=== PATIENT | male | born 2000 | race African-American/Black ===

== ENCOUNTER 2025-03-27 16:06 | Inpatient (IN) | payer MEDICAID, OTHER ==
[2025-03-27] VITALS (24 sets, daily range): BP systolic 88–109; BP diastolic 57–74; PULSE 65–94; RESP 10–25; TEMP 97.9–98.5; O2SAT 98–100
[~2025-03-27] VITALS: Ht 160 cm; Wt 43.6 kg
--- NOTE | 2025-03-27 16:17 | ED.PDOC ---
HPI Comments HPI: Elinor 24 year old male with a developmental delay and baseline orientation of A&Ox1 wa s brought to the ED via EMS for initial complaint of ALOC x today. According to his mother on scene, the patient was in the restroom for an extended period. She found him slumped against the wall on the toilet after hearing the bidet running excessively. The patient is unable to provide a full history but stated "hurt" when asked about chest pain. EMS reported a preliminary EKG finding concerning for a STEMI. His mother is en route to the hospital to assist in determining his baseline mental status Past Medical History: Developmentally delayed, Seizures, TP dependent, Blood clots (unknown per EMS but is on Eliquis) Past Surgical History: Unknown Social History: Denies ETOH, smoking, and drug use. Allergies: Flagyl ELINOR: CP. STEMI EKG faxed to us by EMS was sent to cardiology. Cardiology is at bedside at this time 4:15 p.m. Code STEMI was activated immediately. I specifically asked Dr. Mazariegos if he wants to do a CTA angiogram of the chest or CTA of the chest to rule out dissection and he said not to do this before the poultry hatchery laborer angiogram. He said to wait for now. HPI: Poor Historian. No family members available at bedside. History obtained from EMS only. REVIEW OF SYSTEMS: CONSTITUTIONAL: Denies acute: fever, diaphoresis, chills, generalized weakness. HEAD: Denies acute: headache, photophobia Eyes: Denies acute: Double vision, vision loss, eye pain, eye discharge. EARS: Denies acute: tinnitus, hearing loss, ear discharge, ear pain, THROAT: Denies acute: sore throat, swelling, difficulty swallowing , pain with swallowing, change in voice. NECK: Denies acute: neck pain, neck swelling, stiff neck. HEART: Denies acute : palpitations, LUNGS: Denies acute: SOB, wheezing, cough, hemoptysis ABDOMEN: Denies acute: abdominal pain, Nausea, Vomiting, diarrhea, melena , hematemesis, hematochezia SKIN: Denies acute: rash, redness, lesions, itchiness. EXTREMITIES: Denies acute: calf pain, numbness, tingling, weakness, denies pain in extremity. Denies acute: Low back pain. Neuro: Denies acute: focal neurological deficit, motor or sensory focal neurological deficit, tremors, seizure like activity, confusion, dizziness, change in mental status, loss of bowel or bladder function, cauda equina like symptoms. : Denies acute: dysuria, hematuria, flank pain, increase in urinary frequency. PSYCH: Denies acute: hallucination, suicidal ideation, homicidal ideation. PHYSICAL EXAM: General: ---moderate to severe-----acute distress, awake and alert. Head: normocephalic, atraumatic. Neck: supple, trachea is midline, no swelling. Eyes:, no erythema, no purulent discharge, no proptosis, no icterus. Heart: regular rate, regular rhythm, no significant murmur appreciated. Lungs: no apparent respiratory distress, No wheezing, no rhonchi, no crackles. No stridors Clear to auscultation bilaterally. Abdomen: non tender to palpation, non distended, soft, no guarding, no rebound, + bowel sounds. Neuro: Awake, Alert, oriented to name, self, situation, follows commands GCS=15. Speech is normal. Skin: no petechia, no purpura, no cyanosis, non-pale, not jaundice. Lower extremities: --no - Pitting edema no deformity, no focal swelling, no calf TTP. Makes eye contact. Noted right eye white out Able to raise left upper extremity but not right upper extremity. Face: no apparent facial droop. ED COURSE: DISCLAIMER: This medical document was created using an electronic medical record system with voice recognition software and computerized dictation system. Although this document has been carefully reviewed, there might still be some phonetic and typographical errors. Occasional wrong-word or "sound-alike" substitutions may have occurred due to the inherent limitations of voice recognition software. These areas are purely typographical due to imperfections of the software programs and do not reflect any compromise in the patient's medical care. Please read the chart carefully and recognize, using context, where these substitutions have occurred. Time Seen by MD: 16:09 Reviewed Notes: Allergies Allergies: Coded Allergies: Metronidazole (Verified Allergy, Unknown, 03/27/25) Uncoded Allergies: contrast (Allergy, Mild, 03/27/25) Hives Home Meds Active Scripts Lisinopril (Lisinopril) 20 Mg Tab, 1 TAB PO DAILY, #30 TAB 5 Refills Prov:PAULA BAUGH DO 03/29/25 Atorvastatin Calcium (ATORVASTATIN CALCIUM) 20 Mg Tab, 1 TAB PO DAILY for 30 Days, #30 TAB 5 Refills Prov:PAULA BAUGH DO 03/29/25 Levetiracetam (KEPPRA TABLET) 500 Mg Tb, 500 MG PO BID for 30 Days, #60 TAB 3 Refills Prov:PAULA BAUGH DO 03/29/25 Docusate Sodium (Docusate Sodium) 100 Mg Cap, 100 MG PO BIDPRN PRN for 10 Days, #20 CAP 3 Refills Prov:PAULA BAUGH DO 03/29/25 Apixaban Base (ELIQUIS) 5 Mg Tab, 5 MG PO BID for 30 Days, #60 TAB 3 Refills Prov:PAULA BAUGH DO 03/29/25 Information Source: Emergency Med Personnel Mode of Arrival: EMS Was a procedure done? Was a procedure done?: No CP Differential Dx Differential Diagnosis: N/A Differential Diagnosis: Angina, Chest Wall Pain, Cholelithiasis, Costochondritis, Other (Ddx include but not limitied to gastritis, musculoskeletal pain, radiculopathy, atypical chest pain, dissection, aneurysm, ACS, unstable angina, hiatal hernia, GERD, anxiety, costochondritis, PE, pneumothroax, neoplasm, cardiac ischemia, drug abuse, anemia.) X-Ray, Labs, Meds, VS Vital Signs Date Time Temp Pulse Resp B/P (MAP) Pulse Ox O2 Delivery O2 Flow Rate FiO2 03/27/25 18:23 98.5 70 12 106/65 (79) 100 98.5 03/27/25 16:26 97.7 114 18 142/85 97 97.7 03/27/25 16:26 97.7 114 18 142/85 (104) 97 97.7 03/27/25 16:19 98 03/27/25 16:19 98 Lab Test 03/27/25 16:58 03/27/25 16:36 Range/Units Erythrocyte Sedimentation Rate 6 0-20 mm/hr Prothrombin Time 11.5 9.3-11.8 sec Prothrombin Time INR 1.09 0.9-1.15 Activated Partial Thromboplast Time < 20.0 L 24.5-34.5 SEC Magnesium Level 2.0 1.6-2.6 mg/dL Troponin I High Sensitivity 200 *H </=54 ng/L C-Reactive Protein High Sensitivity 0.08 <1.0 mg/dL Triglycerides Level 95 < 150 mg/dL Cholesterol Level 82 < 200 mg/dL LDL Cholesterol 43 < 100 mg/dL HDL Cholesterol 28 L 40-59 mg/dL Thyroid Stimulating Hormone (TSH) 2.05 0.55-4.78 uIU/mL White Blood Count 7.4 4.4-10.8 10^3/uL Red Blood Count 5.18 4.5-5.90 10^6/uL Hemoglobin 12.4 L 13.5-17.5 g/dL Hematocrit 40.4 L 41.0-53.0 % Mean Corpuscular Volume 77.9 L 80.0-100.0 fL Mean Corpuscular Hemoglobin 23.9 L 28.0-32.0 pg Mean Corpuscular Hemoglobin Concent 30.7 L 32.0-36.0 g/dL Red Cell Distribution Width 16.1 H 11.8-14.3 % Platelet Count 180 140-450 10^3/uL Mean Platelet Volume 9.4 6.9-10.8 fL Neutrophils (%) (Auto) 71.1 37.0-80.0 % Lymphocytes (%) (Auto) 22.4 10.0-50.0 % Monocytes (%) (Auto) 4.1 0.0-12.0 % Eosinophils (%) (Auto) 2.0 0.0-7.0 % Basophils (%) (Auto) 0.4 0.0-2.0 % Neutrophils # (Auto) 5.3 1.6-8.6 10 ^3/uL Lymphocytes # (Auto) 1.7 0.4-5.4 10 ^3/uL Monocytes # (Auto) 0.3 0-1.3 10 ^3/uL Eosinophils # (Auto) 0.2 0-0.8 10 ^3/uL Basophils # (Auto) 0 0-0.2 10 ^3/uL Nucleated Red Blood Cells 0.1 % Sodium Level 146 H 136-145 mmol/L Potassium Level 4.5 3.5-5.1 mmol/L Chloride Level 115 H 98-107 mmol/L Carbon Dioxide Level 16 L 20-31 mmol/L Anion Gap 15 5-15 Blood Urea Nitrogen 10 9-23 mg/dL Creatinine 0.89 0.700-1.30 mg/dL Glomerular Filtration Rate Calc 122 >90 mL/min BUN/Creatinine Ratio 11.2 10.0-20.0 Serum Glucose 113 H 74-106 mg/dL Hemoglobin A1c < 3.8 <5.7 % A1C Calcium Level 9.0 8.7-10.4 mg/dL Total Bilirubin 1.9 H 0.2-1.0 mg/dL Aspartate Amino Transferase (AST) 28 13-40 U/L Alanine Aminotransferase (ALT) 35 7-40 U/L Alkaline Phosphatase 146 H 46-116 U/L B-Type Natriuretic Peptide 21.81 0-100 pg/mL Total Protein 7.7 5.7-8.2 g/dL Albumin 4.4 3.2-4.8 g/dL Microbiology Date/Time Source Procedure Growth Status 03/27/25 07:27 Nose MRSA Screen - Final Complete Time of 1ST Reevaluation: 16:28 Reevaluation 1ST: Unchanged Patient Education/Counseling: Other (baseline of A&O x1- developmentally delayed ) Family Education/Counseling: No Family Present Comments MDM: patient presented with the above HPI.--cardiac----workup was initiated. patient was found with the above mentioned diagnosis. the following medications were ordered: please refer to order lists of meds and tests obtained by myself Dr. Quiroz. Patient ED course and VS have been stabilized. Patient has been reassessed in the ED and remained in a stable condition. Pertinent incidental findings were discussed with the patient and/or family. Patient/family voices understanding and is agreeable with plan. Patient has been observed in the ED adequate length of time to insure improvement/stability. Escalation of care considered: Consideration of escalation to observation or admission Cardiology was consulted immediately. Code STEMI was activated immediately. Patient was taken to the poultry hatchery laborer. All the reports of any imaging studies that were ordered by myself were reviewed by myself. Departure 1 Departure Time of Disposition: 16:29 Impression: Primary Impression: STEMI (ST elevation myocardial infarction) Additional Impression: Chest pain Disposition: ADMITTED INPATIENT Admit to: Tele Condition: Critical e-Prescriptions Lisinopril (Lisinopril) 20 Mg Tab 1 TAB PO DAILY, #30 TAB 5 Refills Prov: PAULA BAUGH DO 03/29/25 Atorvastatin Calcium (ATORVASTATIN CALCIUM) 20 Mg Tab 1 TAB PO DAILY for 30 Days, #30 TAB 5 Refills Prov: PAULA BAUGH DO 03/29/25 Levetiracetam (KEPPRA TABLET) 500 Mg Tb 500 MG PO BID for 30 Days, #60 TAB 3 Refills Prov: PAULA BAUGH DO 03/29/25 Docusate Sodium (Docusate Sodium) 100 Mg Cap 100 MG PO BIDPRN PRN for 10 Days, #20 CAP 3 Refills Prov: PAULA BAUGH DO 03/29/25 Apixaban Base (ELIQUIS) 5 Mg Tab 5 MG PO BID for 30 Days, #60 TAB 3 Refills Prov: PAULA BAUGH DO 03/29/25 Discharged With: Self Critical Care Note Critical Care Time?: Yes Heart Score Heart Score: Heart Score Response (Comments) Value History Moderate Suspicious [address]-Deviation 2 Age <45 0 Risk Factors 1 or 2 risk factors 1 Troponin >3 x's Normal limit 2 Total 6 I personally scribed for GORDON QUIROZ DO ([email or web address]) on 03/27/25 at 16:17. Electronically submitted by Joyce Vargas ([facility]). I personally scribed for GORDON QUIROZ DO ([email or web address]) on 03/27/25 at 16:36. Electronically submitted by Joyce Vargas ([facility]). GORDON QUIROZ DO Mar 27, 2025 16:17
--- NOTE | 2025-03-27 16:30 | ECG ---
[facility] Test Date: 2025-03-27 Test Time: 16:18:06 Pat Name: EVANGELINA ANTOINE Department: Room: 0231T Gender: M Crt: HUBERT : 2000 Requested By: GORDON QUIROZ Order Number: [id number] Reading MD: Atul Dorman Measurements Intervals [place] Rate: 110 P: 52 KS: 119 QRS: 53 QRSD: 84 T: -9 QT: 310 QTc: 420 Interpretive Statements Sinus tachycardia Paired ventricular premature complexes Aberrant conduction of SV complex(es) Borderline T abnormalities, inferior leads Baseline wander in lead(s) I,II,aVR,V1 Electronically Signed On 04-03-2025 20:16:40 PDT by Atul Dorman Please click the below link to view image of tracing.
[2025-03-27] MEDS: diphenhdrAMINE HCL 50 MG/1 ML VL IV ONE (16:39)
[2025-03-27] MEDS: FAMOTIDINE (10MG/ML) 2ML VL IV ONE ×2 (16:40→17:03)
--- NOTE | 2025-03-27 16:40 | DVHINCON2 ---
Date Seen: Mar 27, 2025 Referring Physician MD Priyank Reason for Consultation STEMI History of Present Illness This is a 24-year-old man who presented to the emergency room via EMS with a chief complaint of worsening ALOC. Information obtained from EMS and mother, apparently the patient was using the bathroom for an extended period of time when mother realized the bidet was running non-stop prompting her to inquire further and finding the patient leaning against the wall with clenched fists and yelling distressed which prompted to call 911. Upon EMS arrival he underwent multiple 12 lead electrocardiograms revealing significant ECG changes concerning for a STEMI. Upon arrival to the emergency room the patient underwent a subsequent 12 lead electrocardiogram revealing lateral wall ST-elevation with reciprocal changes to inferior and anteroseptal leads. This ECG was evaluated by Dr. Mazariegos at bedside who activated a Code STEMI. Mother at bedside denies any past medical of congenital heart disease, coronary artery disease, or pericarditis. Pending at this time. 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 Of note, patient follows up with GI/neurologist specialists at [facility]. Past Medical History Past medical history reviewed. No other significant than mentioned above. Past Surgical History Intestinal surgery at 4 y.o. Unspecified tendons Eyes Family History Family history reviewed. Social History Lives at home with family. Allergies: Coded Allergies: Metronidazole (Verified Allergy, Unknown, 03/27/25) Uncoded Allergies: contrast (Allergy, Mild, 03/27/25) Hives Home Meds Home medications reviewed. Review of Systems Constitutional: No symptom reported Ears, Nose, & Throat: No symptom reported Eyes: No symptom reported Neurological: No symptoms reported Pulmonary/Respiratory: No symptom reported Cardiovascular: No symptom reported Gastrointestinal: No symptom reported Genitourinary: No symptom reported Musculoskeletal: No symptom reported Skin: No symptom reported Psychiatric: No symptom reported Endocrine: No symptom reported Hemotologic/Lymphatic: No symptom reported Vital Signs Vital Signs Date Time Temp Pulse Resp B/P (MAP) Pulse Ox O2 Delivery O2 Flow Rate FiO2 03/27/25 16:26 97.7 114 18 142/85 97 97.7 Physical Exam General Appearance: +Cognitive delay. Non-verbal, yelling in distress. Spastic. Appears younger Head Exam: abnormal Neck Exam: Normal inspection. Pulmonary/Respiratory: Diminished bilateral breath sounds Cardiovascular/Chest: Regular rate and rhythm. S1, S2. Lateral wall ST elevation with reciprocal changes to inferior and anteroseptal changes. Peripheral Pulses: 2+ Radial (R). 2+ Radial (L). 2+ Pedal (R). 2+ Pedal (L) Abdominal Exam: Normal bowel sounds Ankle Exam: Negative ankle edema Lower extremities: Negative lower extremity edema Neuro/Mental Status: Cognitive delay Thoughts/Psych: Unable to assess Appearance: Nonverbal, yelling in distress Skin Exam: Normal inspection. Normal color. Warm. Dry Assessment Acute lateral wall ST elevation myocardial infarction Possible acute pericarditis Rule out structural heart disease Cerebral palsy with cognitive delay Hx of multiple upper extremity DVTs (on Eliquis therapy) Seizure activity Plan/Recommendation (Dr. Mazariegos) Patient assessed and evaluated by Dr. Mazariegos who spoke to mother at bedside. Code STEMI activated for which the patient will be emergently scheduled for a coronary angiogram with cardiac catheterization. All risks and benefits of the procedure were discussed in full detail including risk of acute respiratory failure, bleeding, acute kidney injury, acute CVA, coronary dissection, and even . Mother agrees to proceed with intervention. All questions answered. Given a mild allergy for contrast including hives, the patient is scheduled for anaphylaxis prophylaxis prior to procedure. Given Eliquis therapy administration on 03/26/2025, we will hold off from anticoagulation or antiplatelet therapy at this time. In the meantime, obtain a transthoracic echocardiogram to evaluate cardiac function. Blood work pending at this time. Further orders and recommendations per clinical course. Thank you for allowing us to participate in this patient's care. Please call if you have any questions or concerns. Critical care time: 45 minutes. This medical document was created using an electronic medical record system with voice recognition software and computerized dictation system. Although this document has been carefully reviewed, there might still be some phonetic and typographical errors. Occasional wrong-word or ``sound-alike substitutions may have occurred due to the inherent limitations of voice recognition software. These areas are purely typographical due to imperfections of the software programs and do not reflect any compromise in the patient's medical care. Please read the chart carefully and recognize, using context, where these substitutions have occurred. Plan discussed with: Other (mother, aunt) NYHA Physical activity limitations: NA Date of Service: Mar 27, 2025 Billing Provider: SILVIO LAMBERT Cardiology Common Codes: 90294-HUWAGGHI CARE 30-74 MIN SILVIO LAMBERT Mar 27, 2025 16:40
[2025-03-27] MEDS: DEXMEDETOMIDINE HCL IN D5W 100 ML IV ONE (16:50)
[2025-03-27] MEDS: DEXMEDETOMIDINE HCL IN D5W 100 ML IV SCH (16:53)
[2025-03-27] MEDS: methylPREDNISolone SOD SUCC 40 MG/ML VL IV ONE (16:54)
[2025-03-27] MEDS: MIDAZOLAM HCL 2MG/2ML 2ml VIAL (1mg/ml) ONE (16:59)
[2025-03-27] MEDS: fentaNYL CITRATE 100 MCG/2 ML VL ONE (16:59)
[2025-03-27] MEDS: HEPARIN SODIUM (PORCINE) 5000 UNITS/ML 1ML VIAL ONE (16:59)
[2025-03-27] MEDS: ANGIOMAX 250 MG VIAL IV ONE (16:59)
[2025-03-27] MEDS: IODIXANOL 320MG/ML 100ML BTL IV ONE (17:00)
[2025-03-27] MEDS: LIDOCAINE 2%HCL (LOCAL ANESTH.) INJ 20ML MDV ONE (17:00)
[2025-03-27] MEDS: SODIUM CHL 0.9% 50 ML ONE (17:00)
[2025-03-27] MEDS: methylPREDNISolone SOD SUCC 125 MG/2 ML VL ONE (17:03)
[2025-03-27] MEDS: diphenhdrAMINE HCL 50 MG/1 ML VL ONE (17:03)
[2025-03-27 17:06] LABS: Alanine Aminotransferase 35 U/L (7-40); Albumin 4.4 g/dL (3.2-4.8); Anion Gap 15 (5-15); BUN/Creatinine Ratio 11.2 (10.0-20.0); Blood Urea Nitrogen 10 mg/dL (9-23); Calcium 9.0 mg/dL (8.7-10.4); Potassium 4.5 mmol/L (3.5-5.1); Total Protein 7.7 g/dL (5.7-8.2)
--- NOTE | 2025-03-27 17:08 | DVH ---
CHEST RADIOGRAPH Indication: cp Technique: Single frontal view of the chest was obtained Comparison: None FINDINGS: Lines and Tubes: None Lungs: Questionable airspace disease left mid lung field lobe pleural-based. Pleura: No effusion. No pneumothorax. Cardiomediastinal contours: Unremarkable Bones: No acute osseous abnormality. IMPRESSION: 1. Possible pleural-based airspace disease left mid lung field lobe.
[2025-03-27 17:11] LABS: Hematocrit 40.4 % (41.0-53.0); Hemoglobin 12.4 g/dL (13.5-17.5); Mean Corpuscular Hemoglobin 23.9 pg (28.0-32.0); Mean Corpuscular Volume 77.9 fL (80.0-100.0); Nucleated Red Blood Cells % 0.1 %
[2025-03-27 17:13] LABS: Alkaline Phosphatase 146 U/L (46-116); Bilirubin, Total 1.9 mg/dL (0.2-1.0); Carbon Dioxide 16 mmol/L (20-31); Chloride 115 mmol/L (98-107); Glucose 113 mg/dL (74-106); Sodium 146 mmol/L (136-145)
[2025-03-27 17:21] LABS: Magnesium 2.0 mg/dL (1.6-2.6); Triglycerides 95.0 mg/dL (< 150)
[2025-03-27 17:23] LABS: Cholesterol 82.0 mg/dL (< 200)
[2025-03-27 17:30] LABS: INR 1.09 (0.9-1.15); Partial Thromboplastin Time < 20.0 SEC (24.5-34.5); Prothrombin Time 11.5 sec (9.3-11.8)
[2025-03-27 17:39] LABS: HDL Cholesterol 28.0 mg/dL (40-59)
--- NOTE | 2025-03-27 18:28 | DVHINCON2 ---
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 Information obtained from EMS and mother, apparently the patient was using the bathroom for an extended period of time when mother realized the bidet was running non-stop prompting her to inquire further and finding the patient leaning against the wall with clenched fists and yelling distressed which prompted to call 911. Upon EMS arrival he und erwent multiple 12 lead electrocardiograms revealing significant ECG changes concerning for a STEMI. Upon arrival to the emergency room the patient underwent a subsequent 12 lead electrocardiogram revealing lateral wall ST-elevation with reciprocal changes to inferior and anteroseptal leads. This ECG was evaluated by me at bedside therefore I activated a Code STEMI. Mother at bedside denies any past medical of congenital heart disease, coronary artery disease, or pericarditis. Pending at this time. Of note, patient follows up with GI/neurologist specialists at [facility]. Patient will be emergently taken to the label maker and admitted to ICU. Past Medical History Past medical history reviewed. No other significant than mentioned above. Past Surgical History Intestinal surgery at 4 y.o. Unspecified tendons Eyes Allergies: Coded Allergies: Metronidazole (Verified Allergy, Unknown, 03/27/25) Uncoded Allergies: contrast (Allergy, Mild, 03/27/25) Hives Review of Systems Constitutional: No symptom reported Ears, Nose, & Throat: No symptom reported Eyes: No symptom reported Neurological: No symptoms reported Pulmonary/Respiratory: No symptom reported Cardiovascular: No symptom reported Gastrointestinal: No symptom reported Genitourinary: No symptom reported Musculoskeletal: No symptom reported Skin: No symptom reported Psychiatric: No symptom reported Endocrine: No symptom reported Hemotologic/Lymphatic: No symptom reported Vital Signs Vital Signs Date Time Temp Pulse Resp B/P (MAP) Pulse Ox O2 Delivery O2 Flow Rate FiO2 03/27/25 16:26 97.7 114 18 142/85 97 97.7 Physical Exam GENERAL: Alert and oriented x 3. +Cognitive delay. Non-verbal, yelling in distress. Spastic. Appears younger. EYES: PERRL, EOMI. Anicteric. HENT: Moist mucous membranes. LUNGS: Decreased breath sounds. CARDIOVASCULAR: Regular rate and rhythm. ABDOMEN: Soft, nontender and nondistended. EXTREMITIES: No edema. NEUROLOGIC: Cognitive delay. SKIN: Warm, dry. Labs/Diagnostic Data Labs Test 03/27/25 16:58 03/27/25 16:36 Range/Units White Blood Count 7.4 4.4-10.8 10^3/uL Red Blood Count 5.18 4.5-5.90 10^6/uL Hemoglobin 12.4 L 13.5-17.5 g/dL Hematocrit 40.4 L 41.0-53.0 % Mean Corpuscular Volume 77.9 L 80.0-100.0 fL Mean Corpuscular Hemoglobin 23.9 L 28.0-32.0 pg Mean Corpuscular Hemoglobin Concent 30.7 L 32.0-36.0 g/dL Red Cell Distribution Width 16.1 H 11.8-14.3 % Platelet Count 180 140-450 10^3/uL Mean Platelet Volume 9.4 6.9-10.8 fL Neutrophils (%) (Auto) 71.1 37.0-80.0 % Lymphocytes (%) (Auto) 22.4 10.0-50.0 % Monocytes (%) (Auto) 4.1 0.0-12.0 % Eosinophils (%) (Auto) 2.0 0.0-7.0 % Basophils (%) (Auto) 0.4 0.0-2.0 % Neutrophils # (Auto) 5.3 1.6-8.6 10 ^3/uL Lymphocytes # (Auto) 1.7 0.4-5.4 10 ^3/uL Monocytes # (Auto) 0.3 0-1.3 10 ^3/uL Eosinophils # (Auto) 0.2 0-0.8 10 ^3/uL Basophils # (Auto) 0 0-0.2 10 ^3/uL Nucleated Red Blood Cells 0.1 % Sodium Level 146 H 136-145 mmol/L Potassium Level 4.5 3.5-5.1 mmol/L Chloride Level 115 H 98-107 mmol/L Carbon Dioxide Level 16 L 20-31 mmol/L Anion Gap 15 5-15 Blood Urea Nitrogen 10 9-23 mg/dL Creatinine 0.89 0.700-1.30 mg/dL Glomerular Filtration Rate Calc 122 >90 mL/min BUN/Creatinine Ratio 11.2 10.0-20.0 Serum Glucose 113 H 74-106 mg/dL Calcium Level 9.0 8.7-10.4 mg/dL Total Bilirubin 1.9 H 0.2-1.0 mg/dL Aspartate Amino Transferase (AST) 28 13-40 U/L Alanine Aminotransferase (ALT) 35 7-40 U/L Alkaline Phosphatase 146 H 46-116 U/L Total Protein 7.7 5.7-8.2 g/dL Albumin 4.4 3.2-4.8 g/dL Assessment Acute lateral wall ST elevation myocardial infarction. Possible acute pericarditis. Rule out structural heart disease. Cerebral palsy with cognitive delay. 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 Seizure activity. Plan/Recommendation I agree with your ongoing assessment and care of plan. Patient has been seen by Nu Graham NP on my behalf, her and I discussed the plan with the patient. Patient was assessed an evaluated by me at bedside, I spoke with the patient's mother. Code STEMI activated for which the patient will be emergently scheduled for a coronary angiogram with cardiac catheterization. All risks and benefits of the procedure were discussed in full detail including risk of acute respiratory failure, bleeding, acute kidney injury, acute CVA, coronary dissection, and even . Mother agrees to proceed with intervention. All questions answered. Given a mild allergy for contrast including hives, the patient is scheduled for anaphylaxis prophylaxis prior to procedure. Given Eliquis therapy administration on 03/26/2025, we will hold off from anticoagulation or antiplatelet therapy at this time. In the meantime, obtain a transthoracic echocardiogram to evaluate cardiac function. Blood work pending at this time. Further orders and recommendations per clinical course. Additional plan as per the hospital course. Plan discussed with: Patient NYHA Physical activity limitations: NA Date of Service: Mar 27, 2025 Billing Provider: JOHNNY DEL ROSARIO MD Cardiology Common Codes: [id number] INP/OBS CARE (High), [id number] CARE 30-74 MIN JOHNNY DEL ROSARIO MD Mar 27, 2025 17:33
[2025-03-27] MEDS ORDERED: DOCUSATE SOD 100 MG CAP PO PRN (18:30)
[2025-03-27] MEDS ORDERED: ACETAMINOPHEN 325 MG TAB PO PRN (18:30)
[2025-03-27] MEDS ORDERED: ONDANSETRON HCL 4 MG/2 ML VIAL IV PRN (18:30)
--- NOTE | 2025-03-27 18:36 | DVHHP2 ---
History of Present Illness Reason for Visit: ST elevated myocardial infarction History of Present Illness The patient is a 24-year-old male mentally delayed with past medical history of seizure, upper extremity blood clots currently on Eliquis who presented to [facility] ED for evaluation of altered level of consciousness. As reported by EMS and her mother, the patient was using the bathroom for an extended period of time when mother realized the bidet was running non-stop prompting her to inquire further and finding the patient leaning against the wall with clenched fists and yelling distressed which prompted to call 911. Patient was seen and evaluated in the ED, he underwent a subsequent 12 lead electrocardiogram revealing lateral wall ST-elevation with reciprocal changes to inferior and anteroseptal leads. This ECG was evaluated by Dr. Mazariegos at bedside who activated a Code STEMI. Mother at bedside denies any past medical of congenital heart disease, coronary artery disease, or pericarditis. As reported by mom, patient follows up with GI/neurologist specialists at [facility]. Laboratory data shows WBC 7.4, hemoglobin 12.4, hematocrit 40.4, platelets 180, sodium 146, potassium 4.5, BUN 10, creatinine 0.99, glucose 113, calcium 9.0, total bilirubin 1.9, BNP 21.81, troponin to 200, TSH 2.05, blood pressure 142/85, heart rate 114, temperature 97.7 F, O2 saturation 97% on oxygen. Please see medication orders section in the computer. On my assessment, patient remains altered, no diaphoresis, currently on oxygen, no diaphoresis, no diarrhea, no n ausea or vomiting, no fever, no chills. Patient was admitted for further evaluation and medical management. Past Medical History Developmentally delayed, Seizures, TP dependent, Upper extremity blood clots (unknown per EMS but is on Eliquis) Past Surgical History Intestinal surgery at 4 y.o. Unspecified tendons Eyes Family History Family history reviewed. Past Social History Lives at home with family. Review of Systems Constitutional: Yes: Weakness; No: Fever, Chills, Sweats, Malaise, Other Eyes: No: Pain, Vision change, Conjunctivae inflammation, Eyelid inflammation, Other, Redness ENT: No: Ear pain, Ear discharge, Nose pain, Nose discharge, Nose congestion, Mouth pain, Mouth swelling, Throat pain, Throat swelling, Other Respiratory: Shortness of breath; No: Cough, Dry, SOB with excertion, Wheezing, Hemoptysis, Pleuritic Pain, Sputum, Wheezing, Other Cardiovascular: Chest Pain; No: Palpitations, Orthopnea, Paroxysmal Noc. Dyspnea, Edema, Lt Headedness, Other Gastrointestinal: No: Nausea, Vomiting, Abdominal Pain, Diarrhea, Constipation, Melena, Hematochezia, Other Genitourinary: No Dysuria, No Frequency, No Incontinence, No Hematuria, No Retention, No Other Musculoskeletal: No: other, neck pain, shoulder pain, arm pain, back pain, hand pain, leg pain, foot pain Skin: No: Rash, Lesions, Jaundice, Bruising, Other Neurological: Confusion, Other (Altered level of consciousness); No: Weakness, Numbness, Incoordination, Change in speech, Seizures Allergies: Coded Allergies: Metronidazole (Verified Allergy, Unknown, 03/27/25) Uncoded Allergies: contrast (Allergy, Mild, 03/27/25) Hives Exam Vital Signs Vital Signs Date Time Temp Pulse Resp B/P (MAP) Pulse Ox O2 Delivery O2 Flow Rate FiO2 03/27/25 18:23 98.5 70 12 106/65 (79) 100 98.5 General Appearance: Alert, Cooperative, No acute distress, Other (Oriented x1) HEENT: Atraumatic, PERRLA, EOMI, Mucous membr. moist/pink Respiratory: Normal air movement, Other (Currently on oxygen) Cardiovascular: Regular rate, Normal S1, Normal S2, No murmurs Abdominal: Normal bowel sounds, Soft, No tenderness, No hepatospenomegaly, No masses Extremities: No clubbing, No cyanosis, No edema, Normal pulses, No te nderness/swelling Skin: No significant lesion Neuro: Normal tone, Sensation intact, Reflexes 2+, Other (Generalized weakness) Psych/Mental Status: Mood NL, Other (Altered mental status) Labs/Xrays Labs Test 03/27/25 16:58 03/27/25 16:36 Range/Units Erythrocyte Sedimentation Rate 6 0-20 mm/hr Prothrombin Time 11.5 9.3-11.8 sec Prothrombin Time INR 1.09 0.9-1.15 Activated Partial Thromboplast Time < 20.0 L 24.5-34.5 SEC Magnesium Level 2.0 1.6-2.6 mg/dL Troponin I High Sensitivity 200 *H </=54 ng/L C-Reactive Protein High Sensitivity 0.08 <1.0 mg/dL Triglycerides Level 95 < 150 mg/dL Cholesterol Level 82 < 200 mg/dL LDL Cholesterol 43 < 100 mg/dL HDL Cholesterol 28 L 40-59 mg/dL Thyroid Stimulating Hormone (TSH) 2.05 0.55-4.78 uIU/mL White Blood Count 7.4 4.4-10.8 10^3/uL Red Blood Count 5.18 4.5-5.90 10^6/uL Hemoglobin 12.4 L 13.5-17.5 g/dL Hematocrit 40.4 L 41.0-53.0 % Mean Corpuscular Volume 77.9 L 80.0-100.0 fL Mean Corpuscular Hemoglobin 23.9 L 28.0-32.0 pg Mean Corpuscular Hemoglobin Concent 30.7 L 32.0-36.0 g/dL Red Cell Distribution Width 16.1 H 11.8-14.3 % Platelet Count 180 140-450 10^3/uL Mean Platelet Volume 9.4 6.9-10.8 fL Neutrophils (%) (Auto) 71.1 37.0-80.0 % Lymphocytes (%) (Auto) 22.4 10.0-50.0 % Monocytes (%) (Auto) 4.1 0.0-12.0 % Eosinophils (%) (Auto) 2.0 0.0-7.0 % Basophils (%) (Auto) 0.4 0.0-2.0 % Neutrophils # (Auto) 5.3 1.6-8.6 10 ^3/uL Lymphocytes # (Auto) 1.7 0.4-5.4 10 ^3/uL Monocytes # (Auto) 0.3 0-1.3 10 ^3/uL Eosinophils # (Auto) 0.2 0-0.8 10 ^3/uL Basophils # (Auto) 0 0-0.2 10 ^3/uL Nucleated Red Blood Cells 0.1 % Sodium Level 146 H 136-145 mmol/L Potassium Level 4.5 3.5-5.1 mmol/L Chloride Level 115 H 98-107 mmol/L Carbon Dioxide Level 16 L 20-31 mmol/L Anion Gap 15 5-15 Blood Urea Nitrogen 10 9-23 mg/dL Creatinine 0.89 0.700-1.30 mg/dL Glomerular Filtration Rate Calc 122 >90 mL/min BUN/Creatinine Ratio 11.2 10.0-20.0 Serum Glucose 113 H 74-106 mg/dL Hemoglobin A1c < 3.8 <5.7 % A1C Calcium Level 9.0 8.7-10.4 mg/dL Total Bilirubin 1.9 H 0.2-1.0 mg/dL Aspartate Amino Transferase (AST) 28 13-40 U/L Alanine Aminotransferase (ALT) 35 7-40 U/L Alkaline Phosphatase 146 H 46-116 U/L B-Type Natriuretic Peptide 21.81 0-100 pg/mL Total Protein 7.7 5.7-8.2 g/dL Albumin 4.4 3.2-4.8 g/dL PATIENT: EVANGELINA ANTOINE ACCT: [id number] UNIT: [id number] : 2000 LOC: ER ROOM / BED: / AGE / SEX: 24 / M ADM STATUS: REG ER SERVICE ORDERING PHYSICIAN: GORDON QUIROZ DO PROCEDURE(s): CXRP - CHEST PORTABLE REASON: cp ORDER NUMBER(s): [id number], ACCESSION NUMBER(s): [id number] CHEST RADIOGRAPH Indication: cp Technique: Single frontal view of the chest was obtained Comparison: None FINDINGS: Lines and Tubes: None Lungs: Questionable airspace disease left mid lung field lobe pleural-based. Pleura: No effusion. No pneumothorax. Cardiomediastinal contours: Unremarkable Bones: No acute osseous abnormality. IMPRESSION: 1. Possible pleural-based airspace disease left mid lung field lobe. SEPSIS Sepsis Screen Date sepsis recognized/suspect: Mar 27, 2025 Time Sepsis recognized/suspect: 1633 Recent Procedure: No On Antibiotic Therapy: No Respiratory Rate >20: No Heart Rate >90: Yes Temp<36 C (96.8 F) or >38.3 C: No SBP <90 or MAP <65 mmHG: No New Acute Mental Status Change: Yes Is the patient on CPAP, BIPAP,: No Physician Orders Tobacco Prizer (03/27/25 ) Chest Portable (03/27/25 16:28) Electrocardigram (03/27/25 17:28) Electrocardigram (03/27/25 19:28) Obtain Consent For: (03/27/25 16:35) Shave Both Groins (03/27/25 16:35) Provide Education Materials (03/27/25 16:35) Urinalysis (03/27/25 16:35) Cl Left Heart Cath (03/27/25 16:35) Comprehensive Metabolic Panel (03/29/25 04:00) Obtain Consent For Anesthesia (03/27/25 16:35) Echo 2d Mode Cardiac Dop (03/27/25 16:35) Dexmedetomidine Hcl In D5w (Precedex) (03/27/25 16:45) Cl Left Heart Cath (03/27/25 16:52) Communication Order (03/27/25 18:17) * Cardiology Consult (03/27/25:) Admit (03/27/25:) Allergies (03/27/25:) Code Status (03/27/25:) Oxygen Per Hour (03/27/25:) Hydrocodone-Acet 5/325mg Tab (Moro (03/27/25 18:30) Ondansetron Hcl (Zofran) (03/27/25 18:30) Docusate Sodium Capsule (Colace Capsule) (03/27/25 18:30) Fall Risk Precautions In Place QSHIFT (03/27/25 18:26) Complete Blood Count (03/28/25 04:00) Comprehensive Metabolic Panel (03/28/25 04:00) Condition: Critical (03/27/25 18:26) Acetaminophen Tablet (Tylenol Tablet) (03/27/25 18:30) Maintain Bed Rest (03/27/25 18:) Sequential Compression Device (03/27/25 ) Sod Chl 0.45% (Sodium Chloride 0.45% Via (03/27/25 18:30) Famotidine Injection (Pepcid Injection) (03/27/25 22:00) Vital Signs Date Time Temp Pulse Resp B/P (MAP) Pulse Ox O2 Delivery O2 Flow Rate FiO2 03/27/25 18:23 98.5 70 12 106/65 (79) 100 98.5 03/27/25 16:26 97.7 114 18 142/85 97 97.7 03/27/25 16:26 97.7 114 18 142/85 (104) 97 97.7 03/27/25 16:19 98 03/27/25 16:19 98 Laboratory Tests Test 03/27/25 16:36 White Blood Count 7.4 10^3/uL (4.4-10.8) Medications Medications Dose Ordered Sig/Sheila Route Start Time Stop Time Status Last Admin Dose Admin Diphenhydramine HCl 25 mg ONCE ONCE IV 03/27/25 16:30 03/27/25 16:35 DC 03/27/25 16:39 25 MG Famotidine 20 mg ONCE ONCE IV 03/27/25 16:30 03/27/25 16:35 DC 03/27/25 16:40 20 MG Methylprednisolone Sodium Succinate 40 mg ONCE ONCE IV 03/27/25 16:45 03/27/25 16:46 DC 03/27/25 16:54 40 MG Assessment/Plan Assessment/Plan STEMI (ST elevation myocardial infarction) Acute chest pain Altered mental status Generalized weakness Plan 1. Admit to intensive care unit 2. Breathing treatment 3. Pain control management 4. Management of fluids and electrolytes 5. Consultation for Cardiology 6. Diagnostic tests chest x-ray 7. DVT prophylaxis-on heparin 8. Repeat labs CBC, CMP in a.m. 9. Continue with current medical management 10. Treatment plan discussed with patient and RN. Patient will need reinstatement of information given mental status. Plan discussed with: Patient, Other (RN) My Orders Orders - ERASTO GARCÍA DNP Procedure Category Date Status Time * Cardiology Consult CONS 03/27/25 Transmitted 18:26 Admit ADMIT 03/27/25 Transmitted 18:26 Allergies MELINDA 03/27/25 In Process 18:26 Code Status CODE 03/27/25 Transmitted 18:26 Oxygen Per Hour RT 03/27/25 Transmitted 18:26 Hydrocodone-Acet PHA 03/27/25 Logged 5/325mg Tab (Moro 18:30 Ondansetron Hcl PHA 03/27/25 Logged (Zofran) 18:30 Docusate Sodium PHA 03/27/25 Logged Capsule (Colace 18:30 Fall Risk Precautions MELINDA 03/27/[address] 18:26 Complete Blood Count LAB 03/28/25 Verified 04:00 Comprehensive LAB 03/28/25 Verified Metabolic Panel 04:00 Condition: Critical MELINDA 03/27/25 In Process 18:26 Acetaminophen Tablet PHA 03/27/25 Logged (Tylenol Tablet) 18:30 Maintain Bed Rest MELINDA 03/27/25 In Process 18:26 Sequential MELINDA 03/27/25 In Process Compression Device Sod Chl 0.45% (Sodium PHA 03/27/25 Logged Chloride 0.45% Via 18:30 Famotidine Injection PHA 03/27/25 Logged (Pepcid Injection) 22:00 Problem List: (1) STEMI (ST elevation myocardial infarction) (2) Acute chest pain (3) Altered mental status (4) Generalized weakness Date of Service: Mar 27, 2025 Billing Provider: ERASTO GARCÍA DNP Common Visit Codes: [id number] INP/OBS CARE (HIGH) ERASTO GARCÍA DNP Mar 27, 2025 18:36
[2025-03-27] MEDS: SOD CHL 0.45% 1,000 ML IV SCH (19:00)
[2025-03-27] MEDS: FAMOTIDINE (10MG/ML) 2ML VL IV SCH (21:33)
[2025-03-28] VITALS (57 sets, daily range): BP systolic 82–123; BP diastolic 47–75; PULSE 56–92; RESP 9–17; TEMP 97.9–98.4; O2SAT 94–100
[2025-03-28 04:13] LABS: Hemoglobin 10.7 g/dL (13.5-17.5)
[2025-03-28 04:16] LABS: Hematocrit 33.9 % (41.0-53.0); Mean Corpuscular Hemoglobin 23.9 pg (28.0-32.0); Mean Corpuscular Volume 75.7 fL (80.0-100.0); Nucleated Red Blood Cells % 0.3 %
[2025-03-28 04:26] LABS: Alanine Aminotransferase 27 U/L (7-40); Albumin 3.8 g/dL (3.2-4.8); Anion Gap 12 (5-15); BUN/Creatinine Ratio 18.5 (10.0-20.0); Blood Urea Nitrogen 12 mg/dL (9-23); Carbon Dioxide 21 mmol/L (20-31); Potassium 4.5 mmol/L (3.5-5.1); Total Protein 6.6 g/dL (5.7-8.2)
[2025-03-28 04:31] LABS: Alkaline Phosphatase 121 U/L (46-116); Bilirubin, Total 1.5 mg/dL (0.2-1.0); Calcium 8.6 mg/dL (8.7-10.4); Chloride 113 mmol/L (98-107); Glucose 109 mg/dL (74-106); Sodium 146 mmol/L (136-145)
--- NOTE | 2025-03-28 09:28 | DVHPN2 ---
Consult Progress Note Date Seen: Mar 28, 2025 Subjective Other Systems: No overnight cardiac events reported Objective vital signs Vital Sign Date Time Temp Pulse Resp B/P (MAP) Pulse Ox O2 Delivery O2 Flow Rate FiO2 03/28/25 07:00 66 16 123/64 (83) 97 03/28/25 06:19 Nasal Cannula* 2 28 03/28/25 04:00 98.4 98.4 Total Intake and Output 03/27/25 03/27/25 03/28/25 15:00 23:00 07:00 Intake Total 200 ml 360 ml Output Total 950 ml Balance 200 ml -590 ml medications Current Medications Medications Dose Ordered Sig/Sheila Route Start Time Stop Time Status Last Admin Dose Admin Acetaminophen/ Hydrocodone Bitart 1 tab Q4HP PRN PO 03/27/25 18:30 Ondansetron HCl 4 mg Q4HP PRN IV 03/27/25 18:30 Docusate Sodium 100 mg BIDPRN PRN PO 03/27/25 18:30 Acetaminophen 650 mg Q6HP PRN PO 03/27/25 18:30 Sodium Chloride 1,000 ml @ 50 mls/hr Q20H IV 03/27/25 18:30 03/27/25 19:00 50 MLS/HR Famotidine 20 mg Q12HR IV 03/27/25 22:00 03/27/25 21:33 20 MG Apixaban 5 mg BID PO 03/28/25 10:00 Examination: LUNGS:Normal, CVS:Normal, NEURO:Abnormal (+Cognitive impairment) laboratory and microbiology Laboratory Tests 03/28/25 03:30 Test 03/28/25 03:30 Range/Units Serum Glucose 109 H 74-106 mg/dL Problem List/Assessment/Plan Problem List/Assessment/Plan Dynamic ECG changes with CAD ruled out Acute pericarditis ruled out Rule out structural heart disease Cerebral palsy with cognitive delay 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 Mazariegos) The patient presented with dynamic 12-lead electrocardiogram changes mostly to the lateral wall for which he underwent a coronary angiogram without catheter based intervention given normal coronaries. Acute pericarditis have been ruled out as well. Per mother, patient may had experienced a seizure at home. Continue home Eliquis therapy which was prescribed as DVT prophylaxis. Continue with a transthoracic echocardiogram to evaluate cardiac function. In the setting of an unremarkable echocardiogram, there is no further cardiac work- up indicated at this time. Thank you for allowing us to participate in this patient's care. This medical document was created using an electronic medical record system with voice recognition software and computerized dictation system. Although this document has been carefully reviewed, there might still be some phonetic and typographical errors. Occasional wrong-word or ``sound-alike substitutions may have occurred due to the inherent limitations of voice recognition software. These areas are purely typographical due to imperfections of the software programs and do not reflect any compromise in the patient's medical care. Please read the chart carefully and recognize, using context, where these substitutions have occurred. Plan discussed with: Other (Mother, ) Date of Service: Mar 28, 2025 Billing Provider: SILVIO LAMBERT Cardiology Common Codes: [id number] HOSP CARE(High SILVIO LAMBERT Mar 28, 2025 09:28
[2025-03-28] MEDS: APIXABAN 5 MG TAB PO SCH (10:31)
[2025-03-28] MEDS ORDERED: TPN PER PHARMACY 0 ML IV SCH (11:15)
[2025-03-28] MEDS ORDERED: DEXTROSE (50%) 50ML SYRG IV SCH (12:00)
[2025-03-28] MEDS: InsuLIN REG 1unit/0.01ml Soln (100units/ml) SC SCH (12:00)
[2025-03-28] MEDS: ACCU-CHEK COMFORT CURVE STRIP VI SCH (12:00)
[2025-03-28 12:10] LABS: Magnesium 2.0 mg/dL (1.6-2.6)
--- NOTE | 2025-03-28 14:37 | DVHSR ---
APPROVED REPORT EXAM: Two-dimensional and M-mode echocardiogram with Doppler and color Doppler. Blood Pressure: 123/64 mmHg INDICATION STEMI RISK FACTORS Height: 5'3", Weight: 96 DIMENSIONS LVDd (3.8-5.7cm)LA (2D)3.0 (1.9-4.0cm)Aortic Root3.1 (2.0-3.7cm) LVDs (2.5-4.0cm)LA (MM) (1.9-4.0cm)Aortic Cusp Exc1.6 (1.5-2.0cm) EF (%) 55.0 (55-70%)Rt. Atrium3.3 (1.9-4.0cm)Asc. Aorta cm IVSd (0.7-1.1cm)RV (D)2.9 (1.8-2.4cm) Mitral Valve MitralMitral Stenosis E wave0.64m/sMV Mean GR.mmHg A wave0.66m/sMV Peak GR.mmHg E/A ratio1.02D MVAcm2 DECEL [id number] 1/2 Timems Aortic Valve Aortic ValveAortic Stenosis V10.87m/Doyle Mean GR.2mmHg V20.99m/Doyle Peak GR.4mmHg LVOT Diameter1.9 (1.8-2.4cm)Doppler AVA2.49cm2 Pulmonic Valve V20.77m/s Tricuspid Valve TR Velocity1.93m/s [id number] Other Information Technically limited study due to body habitus, patient lying flat. Conclusion NORMAL LV EF AND IS 60% NORMAL VALVES NORMAL RV FUNCTION NO EFFUSION
[2025-03-28] MEDS: TPN PER PHARMACY IV NR (21:41)
[2025-03-28] MEDS: levETIRAcetam 500 mg/100ml 100 ML IV SCH (21:42)
--- NOTE | 2025-03-28 23:26 | DVHPN2 ---
Consult Progress Note Date Seen: Mar 28, 2025 Subjective Other Systems: Patient was seen and evaluated in follow up in the ICU. No overnight cardiac events reported. Patient's mother Keiko is present at bedside. NA 146, CL 113, CA 8.6. Echocardiogram is ordered/pending. Objective vital signs Vital Sign Date Time Temp Pulse Resp B/P (MAP) Pulse Ox O2 Delivery O2 Flow Rate FiO2 03/28/25 12:29 12 96 Room Air* 0 21 03/28/25 12:00 98.3 83 92/58 (69) 98.3 Total Intake and Output 03/27/25 03/27/25 03/28/25 14:59 22:59 06:59 Intake Total 150 ml 410 ml Output Total 950 ml Balance 150 ml -540 ml medications Current Medications Medications Dose Ordered Sig/Sheila Route Start Time Stop Time Status Last Admin Dose Admin Acetaminophen/ Hydrocodone Bitart 1 tab Q4HP PRN PO 03/27/25 18:30 Ondansetron HCl 4 mg Q4HP PRN IV 03/27/25 18:30 Docusate Sodium 100 mg BIDPRN PRN PO 03/27/25 18:30 Acetaminophen 650 mg Q6HP PRN PO 03/27/25 18:30 Sodium Chloride 1,000 ml @ 50 mls/hr Q20H IV 03/27/25 18:30 03/27/25 19:00 50 MLS/HR Famotidine 20 mg Q12HR IV 03/27/25 22:00 03/28/25 10:31 20 MG Apixaban 5 mg BID PO 03/28/25 10:00 03/28/25 10:31 5 MG Oxcarbazepine 300 mg Q12HR PO 03/28/25 10:00 03/28/25 10:31 300 MG Amino Acids 0 ml @ 0 mls/hr PER PHARMACY IV 03/28/25 11:15 Diagnostic Test (Pha) 1 strip Q6HR 03/28/25 12:00 Insulin Human Regular FOLLOW SLIDING SCALE Q6HR SC 03/28/25 12:00 Dextrose 50 ml UD IV 03/28/25 12:00 Fat Emulsion Intravenous 100 ml/Potassium Acetate 40 meq/ Calcium Gluconate 2.3 meq/Magnesium Sulfate 4 meq/ Multivitamins 10 ml/Amino Acids/ Dextrose/Purified Water 1,135.9462 ml @ 47 mls/hr [id number] IV 03/28/25 22:00 03/29/25 21:59 Examination: LUNGS:Normal, CVS:Normal, NEURO:Abnormal (+Cognitive impairment) laboratory and microbiology Laboratory Tests 03/28/25 03:30 Test 03/28/25 03:30 Range/Units Serum Glucose 109 H 74-106 mg/dL Problem List/Assessment/Plan Problem List/Assessment/Plan Problem list Dynamic ECG changes with CAD ruled out. Acute pericarditis ruled out. Rule out structural heart disease. Cerebral palsy with cognitive delay. 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 Seizure activity. NSTEMI Type II, likely secondary to above. Plan/Recommendation Continued all current supportive medical care. Patient has been seen by Nu Graham NP on my behalf, her and I discussed the plan with the patient. The patient presented with dynamic 12-lead electrocardiogram changes mostly to the lateral wall for which he underwent a coronary angiogram without catheter based intervention given normal coronaries. Acute pericarditis have been ruled out as well. Per mother, patient may had experienced a seizure at home. Continue home Eliquis therapy which was prescribed as DVT prophylaxis. Continue with a transthoracic echocardiogram to evaluate cardiac function. In the setting of an unremarkable echocardiogram, there is no further cardiac work-up indicated at this time. Additional plan as per the hospital course. Plan discussed with: Patient Dietary Evaluation Review Recommendations by RD: PPN/TPN Comments: 1) Initiate TPN to meet at least 75% of estimated daily needs 2) If GI is preferred, consider Jevity 1.2 @ 55 mL/hr goal rate as tolerated. EN regimen will provide 1584 kcals, 73g Pro and 1065 mL free H2O per 24 hrs. Goal rate will meet ~96% estimated daily energy needs and exceed estimated daily protein eneds. 3) Advance to regular diet when medically feasible, pending ST approval 4) Follow-up with neurology 5) Continue to monitor I&O, labs, and skin integrity Expected Outcomes/Goals: 1) EN/TPN to meet at least 75% of estimated daily needs 2) labs to improve 3) diet to advance 4) f/u in 2-3 days Date of Service: Mar 28, 2025 Billing Provider: JOHNNY DEL ROSARIO MD Cardiology Common Codes: [id number] CARE 30-74 MIN JOHNNY DEL ROSARIO MD Mar 28, 2025 13:31
--- NOTE | 2025-03-28 23:32 | DVHOP ---
DATE OF SURGERY: 03/27/2025 TECHNIQUES PERFORMED: * Emergency case. * Ultrasound of the left femoral artery. * Management of conscious sedation. * Left heart catheter. * Left ventriculogram. * [place] selective left and right coronary artery angiography. * Left iliofemoral artery angiography and arteriotomy application of the Mynx device. ASSISTANTS: Assisted by our staff here, Miko Matos, Mervin, Luz and Krystyna. DATE OF TIME OF PROCEDURE: 03/27/2025 at approximately 5:15 p.m. INDICATIONS: The patient came with a crushing chest pain, large Q-wave pattern noted in II, III, aVF, aVL, V5 to V6. He had a history of cerebral palsy. DESCRIPTION OF PROCEDURE: Risks and benefits having all explained to the patient's mother in person by myself and our nurse practitioner, Virgie Graham and informed consent was obtained. The left femoral area thoroughly cleaned with soap and Betadine. Ultrasound was done. Lidocaine was given. The patient was already started on IV Precedex drip to calm him down as he was significantly agitated and unable to hold down still in the bed. IV Versed was given in the aquatic laborer. Left femoral area was then cleaned with soap and Betadine. Ultrasound was done. The artery was punctured anteriorly and 6-Latvian arterial line had been placed. We put a JL 6-Latvian 3.5 catheter, unable to engage for now. We also put a pigtail catheter, 4-Latvian and left heart cath also had been done. The left ventriculogram was done in the right anterior oblique view with total of 16 mL of dye. Post-LV gram, left ventricular end-diastolic pressure again performed with help of also performed. We did a left iliofemoral artery angiography, arteriotomy, application of Mynx device was done. Procedure completed. IMPRESSION: * Left main normal. * Left main divided in the left anterior descending artery and circumflex artery. The left anterior descending artery is widely open, normal. * Diagonal artery normal. * Circumflex and obtuse marginal arteries are of moderate size and is normal. * The right coronary artery is a large dominant artery and normal. * The left ventricle is slightly dilated. Global left ventricular hypokinesis, ejection fraction of 30%. CONCLUSIONS: * The study has revealed normal coronary arteries. * Ejection fraction was reduced and is in the range of 30%. Daysi Mazariegos MD MP/VANE/ADRIAN TID: [id number] RECEIPT: [id number] MTDD
[2025-03-29] VITALS (12 sets, daily range): BP systolic 93–122; BP diastolic 40–85; PULSE 50–93; RESP 12–21; TEMP 97.6–98.6; O2SAT 93–100
[2025-03-29 10:29] LABS: Alanine Aminotransferase 27 U/L (7-40); Albumin 4.2 g/dL (3.2-4.8); Alkaline Phosphatase 116 U/L (46-116); Anion Gap 12 (5-15); BUN/Creatinine Ratio 15.3 (10.0-20.0); Blood Urea Nitrogen 15 mg/dL (9-23); Calcium 8.9 mg/dL (8.7-10.4); Carbon Dioxide 25 mmol/L (20-31); Magnesium 1.8 mg/dL (1.6-2.6); Potassium 4.4 mmol/L (3.5-5.1); Total Protein 7.0 g/dL (5.7-8.2)
[2025-03-29 10:32] LABS: Bilirubin, Total 1.5 mg/dL (0.2-1.0); Chloride 109 mmol/L (98-107); Glucose 73 mg/dL (74-106); Sodium 146 mmol/L (136-145)
--- NOTE | 2025-03-29 11:24 | DVHPN2 ---
Reviewed: Care Plan, H&P, Labs, Medications, Previous Orders, Radiology Changes from previous H/P or p: No Changes General: Per HPI Eyes: No Pain, No Vision change, No Conjunctivae inflammation, No Eyelid inflammation, No Other, No Redness ENT: No Ear pain, No Ear discharge, No Nose pain, No Nose discharge, No Nose congestion, No Mouth pain, No Mouth swelling, No Throat pain, No Throat swelling, No Other Cardiovascular: Chest Pain; No Palpitations, No Orthopnea, No Paroxysmal Noc. Dyspnea, No Edema, No Lt Headedness, No Other Respiratory: No Cough, No Dry; Shortness of breath; No SOB with excertion, No Wheezing, No Hemoptysis, No Pleuritic Pain, No Sputum, No Other Gastrointestinal: No Nausea, No Vomiting, No Abdominal Pain, No Diarrhea, No Constipation, No Melena, No Hematochezia, No Other Genitourinary: No Dysuria, No Frequency, No Incontinence, No Hematuria, No Retention, No Other Musculoskeletal: No other, No neck pain, No shoulder pain, No arm pain, No back pain, No hand pain, No leg pain, No foot pain Skin: No Rash, No Lesions, No Jaundice, No Bruising, No Other Objective Vitals Vital Signs Date Time Temp Pulse Resp B/P (MAP) Pulse Ox O2 Delivery O2 Flow Rate FiO2 03/29/25 09:00 97.6 71 20 122/78 (93) 93 97.6 03/29/25 08:05 Room Air* 0 21 Intake/Output Intake and Output 03/29/25 07:00 Intake Total 2182 ml Balance 2182 ml Intake Oral 840 ml IV Total 1342 ml # Voids 5 General Appearance: Alert, Oriented X3, Cooperative HEENT: Atraumatic Cardiovascular: Normal S1, Normal S2 Abdomen: Soft Medications Current Medications Medications Dose Ordered Sig/Sheila Route Start Time Stop Time Status Last Admin Dose Admin Acetaminophen/ Hydrocodone Bitart 1 tab Q4HP PRN PO 03/27/25 18:30 Ondansetron HCl 4 mg Q4HP PRN IV 03/27/25 18:30 Docusate Sodium 100 mg BIDPRN PRN PO 03/27/25 18:30 Acetaminophen 650 mg Q6HP PRN PO 03/27/25 18:30 Sodium Chloride 1,000 ml @ 50 mls/hr Q20H IV 03/27/25 18:30 03/29/25 10:18 50 MLS/HR Famotidine 20 mg Q12HR IV 03/27/25 22:00 03/29/25 10:05 20 MG Apixaban 5 mg BID PO 03/28/25 10:00 03/29/25 10:06 5 MG Oxcarbazepine 300 mg Q12HR PO 03/28/25 10:00 03/29/25 10:06 300 MG Amino Acids 0 ml @ 0 mls/hr PER PHARMACY IV 03/28/25 11:15 Diagnostic Test (Pha) 1 strip Q6HR 03/28/25 12:00 03/29/25 00:26 1 STRIP Insulin Human Regular FOLLOW SLIDING SCALE Q6HR SC 03/28/25 12:00 Dextrose 50 ml UD IV 03/28/25 12:00 Fat Emulsion Intravenous 100 ml/Potassium Acetate 40 meq/ Calcium Gluconate 2.3 meq/Magnesium Sulfate 4 meq/ Multivitamins 10 ml/Amino Acids/ Dextrose/Purified Water 1,135.9462 ml @ 47 mls/hr [id number] IV 03/28/25 22:00 03/29/25 21:59 03/28/25 21:41 47 MLS/HR Levetiracetam 100 ml @ 400 mls/hr BID IV 03/28/25 22:00 03/29/25 10:05 400 MLS/HR Fat Emulsion Intravenous 150 ml/Potassium Acetate 10 meq/ Potassium Phosphate 44 meq/ Calcium Gluconate 2.3 meq/Magnesium Sulfate 8 meq/ Multivitamins 10 ml/Amino Acids/ Dextrose/Purified Water 1,331.9462 ml @ 56 mls/hr [id number] IV 03/29/25 22:00 03/30/25 21:59 Laboratory Results Laboratory Tests 03/28/25 03:30 03/29/25 09:31 Chemistry Test 03/29/25 09:31 Albumin 4.2 g/dL (3.2-4.8) Calcium Level 8.9 mg/dL (8.7-10.4) Magnesium Level 1.8 mg/dL (1.6-2.6) Phosphorus Level 3.7 mg/dL (2.4-5.1) Total Protein 7.0 g/dL (5.7-8.2) LFT Test 03/29/25 09:31 Alanine Aminotransferase (ALT) 27 U/L (7-40) Alkaline Phosphatase 116 U/L (46-116) Aspartate Amino Transferase (AST) 24 U/L (13-40) Total Bilirubin 1.5 mg/dL (0.2-1.0) H Microbiology Microbiology Date/Time Source Procedure Growth Status 03/27/25 07:27 Nose MRSA Screen - Final Complete Labs and/or images reviewed: Labs reviewed by me, Image(s) reviewed by me Assessment/Plan Assessment/Plan The patient is a 24-year-old male mentally delayed with past medical history of seizure, upper extremity blood clots currently on Eliquis who presented to [facility] ED for evaluation of altered level of consciousness. As reported by EMS and her mother, the patient was using the bathroom for an extended period of time when mother realized the bidet was running non-stop prompting her to inquire further and finding the patient leaning against the wall with clenched fists and yelling distressed which prompted to call 911. Patient was seen and evaluated in the ED, he underwent a subsequent 12 lead electrocardiogram revealing lateral wall ST-elevation with reciprocal changes to inferior and anteroseptal leads. This ECG was evaluated by Dr. Mazariegos at bedside who activated a Code STEMI. Mother at bedside denies any past medical of congenital heart disease, coronary artery disease, or pericarditis. As reported by mom, patient follows up with GI/neurologist specialists at [facility]. Laboratory data shows WBC 7.4, hemoglobin 12.4, hematocrit 40.4, platelets 180, sodium 146, potassium 4.5, BUN 10, creatinine 0.99, glucose 113, calcium 9.0, total bilirubin 1.9, BNP 21.81, troponin to 200, TSH 2.05, blood pressure 142/85, heart rate 114, temperature 97.7 F, O2 saturation 97% on oxygen. Please see medication orders section in the computer. On my assessment, patient remains altered, no diaphoresis, currently on oxygen, no diaphoresis, no diarrhea, no nausea or vomiting, no fever, no chills. Patient was admitted for further evaluation and medical management. STEMI (ST elevation myocardial infarction) Acute chest pain Altered mental status Generalized weakness Dynamic ECG changes with CAD ruled out. Acute pericarditis ruled out. Rule out structural heart disease. Cerebral palsy with cognitive delay. 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 Seizure activity. 03/28/2025: s/p catheterization. defer to cardiology's note for details. pt is doing well. discussed with nursing. pt seen at bedside. downgrade to Telemetry Plan discussed with: Patient My Orders Orders - PAULA BAUGH DO Procedure Category Date Status Time Mechanical Soft Diet DIET 03/28/25 Transmitted Dinner Levetiracetam 500 PHA 03/28/25 In Process Mg/100ml (Levetiraceta 22:00 Date of Service: Mar 28, 2025 Billing Provider: PAULA BAUGH DO Common Visit Codes: [id number] INP/OBS CARE(HIGH) PAULA BAUGH DO Mar 29, 2025 11:24
--- NOTE | 2025-03-29 11:26 | DVHPN2 ---
Reviewed: Care Plan, H&P, Labs, Medications, Previous Orders, Radiology Changes from previous H/P or p: No Changes General: Per HPI Eyes: No Pain, No Vision change, No Conjunctivae inflammation, No Eyelid inflammation, No Other, No Redness ENT: No Ear pain, No Ear discharge, No Nose pain, No Nose discharge, No Nose congestion, No Mouth pain, No Mouth swelling, No Throat pain, No Throat swelling, No Other Cardiovascular: Chest Pain; No Palpitations, No Orthopnea, No Paroxysmal Noc. Dyspnea, No Edema, No Lt Headedness, No Other Respiratory: No Cough, No Dry; Shortness of breath; No SOB with excertion, No Wheezing, No Hemoptysis, No Pleuritic Pain, No Sputum, No Other Gastrointestinal: No Nausea, No Vomiting, No Abdominal Pain, No Diarrhea, No Constipation, No Melena, No Hematochezia, No Other Genitourinary: No Dysuria, No Frequency, No Incontinence, No Hematuria, No Retention, No Other Musculoskeletal: No other, No neck pain, No shoulder pain, No arm pain, No back pain, No hand pain, No leg pain, No foot pain Skin: No Rash, No Lesions, No Jaundice, No Bruising, No Other Objective Vitals Vital Signs Date Time Temp Pulse Resp B/P (MAP) Pulse Ox O2 Delivery O2 Flow Rate FiO2 03/29/25 09:00 97.6 71 20 122/78 (93) 93 97.6 03/29/25 08:05 Room Air* 0 21 Intake/Output Intake and Output 03/29/25 07:00 Intake Total 2182 ml Balance 2182 ml Intake Oral 840 ml IV Total 1342 ml # Voids 5 General Appearance: Alert, Oriented X3, Cooperative HEENT: Atraumatic Cardiovascular: Normal S1, Normal S2 Abdomen: Soft Medications Current Medications Medications Dose Ordered Sig/Sheila Route Start Time Stop Time Status Last Admin Dose Admin Acetaminophen/ Hydrocodone Bitart 1 tab Q4HP PRN PO 03/27/25 18:30 Ondansetron HCl 4 mg Q4HP PRN IV 03/27/25 18:30 Docusate Sodium 100 mg BIDPRN PRN PO 03/27/25 18:30 Acetaminophen 650 mg Q6HP PRN PO 03/27/25 18:30 Sodium Chloride 1,000 ml @ 50 mls/hr Q20H IV 03/27/25 18:30 03/29/25 10:18 50 MLS/HR Famotidine 20 mg Q12HR IV 03/27/25 22:00 03/29/25 10:05 20 MG Apixaban 5 mg BID PO 03/28/25 10:00 03/29/25 10:06 5 MG Oxcarbazepine 300 mg Q12HR PO 03/28/25 10:00 03/29/25 10:06 300 MG Amino Acids 0 ml @ 0 mls/hr PER PHARMACY IV 03/28/25 11:15 Diagnostic Test (Pha) 1 strip Q6HR 03/28/25 12:00 03/29/25 00:26 1 STRIP Insulin Human Regular FOLLOW SLIDING SCALE Q6HR SC 03/28/25 12:00 Dextrose 50 ml UD IV 03/28/25 12:00 Fat Emulsion Intravenous 100 ml/Potassium Acetate 40 meq/ Calcium Gluconate 2.3 meq/Magnesium Sulfate 4 meq/ Multivitamins 10 ml/Amino Acids/ Dextrose/Purified Water 1,135.9462 ml @ 47 mls/hr [id number] IV 03/28/25 22:00 03/29/25 21:59 03/28/25 21:41 47 MLS/HR Levetiracetam 100 ml @ 400 mls/hr BID IV 03/28/25 22:00 03/29/25 10:05 400 MLS/HR Fat Emulsion Intravenous 150 ml/Potassium Acetate 10 meq/ Potassium Phosphate 44 meq/ Calcium Gluconate 2.3 meq/Magnesium Sulfate 8 meq/ Multivitamins 10 ml/Amino Acids/ Dextrose/Purified Water 1,331.9462 ml @ 56 mls/hr [id number] IV 03/29/25 22:00 03/30/25 21:59 Laboratory Results Laboratory Tests 03/28/25 03:30 03/29/25 09:31 Chemistry Test 03/29/25 09:31 Albumin 4.2 g/dL (3.2-4.8) Calcium Level 8.9 mg/dL (8.7-10.4) Magnesium Level 1.8 mg/dL (1.6-2.6) Phosphorus Level 3.7 mg/dL (2.4-5.1) Total Protein 7.0 g/dL (5.7-8.2) LFT Test 03/29/25 09:31 Alanine Aminotransferase (ALT) 27 U/L (7-40) Alkaline Phosphatase 116 U/L (46-116) Aspartate Amino Transferase (AST) 24 U/L (13-40) Total Bilirubin 1.5 mg/dL (0.2-1.0) H Microbiology Microbiology Date/Time Source Procedure Growth Status 03/27/25 07:27 Nose MRSA Screen - Final Complete Labs and/or images reviewed: Labs reviewed by me, Image(s) reviewed by me Assessment/Plan Assessment/Plan The patient is a 24-year-old male mentally delayed with past medical history of seizure, upper extremity blood clots currently on Eliquis who presented to [facility] ED for evaluation of altered level of consciousness. As reported by EMS and her mother, the patient was using the bathroom for an extended period of time when mother realized the bidet was running non-stop prompting her to inquire further and finding the patient leaning against the wall with clenched fists and yelling distressed which prompted to call 911. Patient was seen and evaluated in the ED, he underwent a subsequent 12 lead electrocardiogram revealing lateral wall ST-elevation with reciprocal changes to inferior and anteroseptal leads. This ECG was evaluated by Dr. Mazariegos at bedside who activated a Code STEMI. Mother at bedside denies any past medical of congenital heart disease, coronary artery disease, or pericarditis. As reported by mom, patient follows up with GI/neurologist specialists at [facility]. Laboratory data shows WBC 7.4, hemoglobin 12.4, hematocrit 40.4, platelets 180, sodium 146, potassium 4.5, BUN 10, creatinine 0.99, glucose 113, calcium 9.0, total bilirubin 1.9, BNP 21.81, troponin to 200, TSH 2.05, blood pressure 142/85, heart rate 114, temperature 97.7 F, O2 saturation 97% on oxygen. Please see medication orders section in the computer. On my assessment, patient remains altered, no diaphoresis, currently on oxygen, no diaphoresis, no diarrhea, no nausea or vomiting, no fever, no chills. Patient was admitted for further evaluation and medical management. STEMI (ST elevation myocardial infarction) Acute chest pain Altered mental status Generalized weakness Dynamic ECG changes with CAD ruled out. Acute pericarditis ruled out. Rule out structural heart disease. Cerebral palsy with cognitive delay. 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 Seizure activity. 03/28/2025: s/p catheterization. defer to cardiology's note for details. pt is doing well. discussed with nursing. pt seen at bedside. downgrade to Telemetry 03/29/2025: continue with monitor. cardio to clear pt prior to discharge. Plan discussed with: Patient, Other (nursing) My Orders Orders - PAULA BAUGH DO Procedure Category Date Status Time Mechanical Soft Diet DIET 03/28/25 Transmitted Dinner Levetiracetam 500 PHA 03/28/25 In Process Mg/100ml (Levetiraceta 22:00 Date of Service: Mar 29, 2025 Billing Provider: PAULA BAUGH DO Common Visit Codes: [id number] INP/OBS CARE(HIGH) PAULA BAUGH DO Mar 29, 2025 11:26
[2025-03-29] MEDS: HYDROcodone-ACET 5/325MG TAB PO PRN (12:21)
--- NOTE | 2025-03-29 14:39 | ECG ---
[facility] Test Date: 2025-03-27 Test Time: 16:19:21 Pat Name: EVANGELINA ANTOINE Department: Room: 0231T A Gender: M [employer]acitor Assembler: HUBERT : 2000 Requested By: GORDON QUIROZ Order Number: [id number] Reading MD: Atul Dorman Measurements Intervals [place] Rate: 98 P: 45 [place]: 129 QRS: 39 QRSD: 101 T: 34 QT: 340 QTc: 435 Interpretive Statements Sinus rhythm Multiform ventricular premature complexes Inferolateral infarct, old Electronically Signed On 04-03-2025 20:17:02 PDT by Atul Dorman Please click the below link to view image of tracing.
[2025-03-29] MEDS ORDERED: KEP500T PO (16:51)
[2025-03-29] MEDS ORDERED: APIX5TAB PO (16:51)
[2025-03-29] MEDS ORDERED: DOCU-265 PO (16:51)
--- NOTE | 2025-03-29 16:54 | DVHDS2 ---
Discharge Summary Date of Admission Mar 27, 2025 at 18:26 Date of Discharge: Mar 29, 2025 Labs/Diagnostic Data: Laboratory Results Test 03/29/25 09:31 03/28/25 23:39 03/28/25 03:30 03/27/25 16:58 Sodium Level 146 mmol/L (136-145) Potassium Level 4.4 mmol/L (3.5-5.1) Chloride Level 109 mmol/L (98-107) Carbon Dioxide Level 25 mmol/L (20-31) Anion Gap 12 (5-15) Blood Urea Nitrogen 15 mg/dL (9-23) Creatinine 0.98 mg/dL (0.700-1.30) Glomerular Filtration Rate Calc 110 mL/min (>90) BUN/Creatinine Ratio 15.3 (10.0-20.0) Serum Glucose 73 mg/dL (74-106) Calcium Level 8.9 mg/dL (8.7-10.4) Phosphorus Level 3.7 mg/dL (2.4-5.1) Magnesium Level 1.8 mg/dL (1.6-2.6) Total Bilirubin 1.5 mg/dL (0.2-1.0) Aspartate Amino Transferase (AST) 24 U/L (13-40) Alanine Aminotransferase (ALT) 27 U/L (7-40) Alkaline Phosphatase 116 U/L (46-116) Total Protein 7.0 g/dL (5.7-8.2) Albumin 4.2 g/dL (3.2-4.8) POC Glucose 116 mg/dl (70-106) White Blood Count 5.9 10^3/uL (4.4-10.8) Red Blood Count 4.48 10^6/uL (4.5-5.90) Hemoglobin 10.7 g/dL (13.5-17.5) Hematocrit 33.9 % (41.0-53.0) Mean Corpuscular Volume 75.7 fL (80.0-100.0) Mean Corpuscular Hemoglobin 23.9 pg (28.0-32.0) Mean Corpuscular Hemoglobin Concent 31.6 g/dL (32.0-36.0) Red Cell Distribution Width 15.2 % (11.8-14.3) Platelet Count 181 10^3/uL (140-450) Mean Platelet Volume 10.5 fL (6.9-10.8) Neutrophils (%) (Auto) 69.7 % (37.0-80.0) Lymphocytes (%) (Auto) 25.4 % (10.0-50.0) Monocytes (%) (Auto) 4.4 % (0.0-12.0) Eosinophils (%) (Auto) 0.3 % (0.0-7.0) Basophils (%) (Auto) 0.2 % (0.0-2.0) Neutrophils # (Auto) 4.1 10 ^3/uL (1.6-8.6) Lymphocytes # (Auto) 1.5 10 ^3/uL (0.4-5.4) Monocytes # (Auto) 0.3 10 ^3/uL (0-1.3) Eosinophils # (Auto) 0 10 ^3/uL (0-0.8) Basophils # (Auto) 0 10 ^3/uL (0-0.2) Nucleated Red Blood Cells 0.3 % Erythrocyte Sedimentation Rate 6 mm/hr (0-20) Prothrombin Time 11.5 sec (9.3-11.8) Prothrombin Time INR 1.09 (0.9-1.15) Activated Partial Thromboplast Time < 20.0 SEC (24.5-34.5) Troponin I High Sensitivity 200 ng/L (</=54) C-Reactive Protein High Sensitivity 0.08 mg/dL (<1.0) Triglycerides Level 95 mg/dL (< 150) Cholesterol Level 82 mg/dL (< 200) LDL Cholesterol 43 mg/dL (< 100) HDL Cholesterol 28 mg/dL (40-59) Thyroid Stimulating Hormone (TSH) 2.05 uIU/mL (0.55-4.78) Test 03/27/25 16:36 Hemoglobin A1c < 3.8 % A1C (<5.7) B-Type Natriuretic Peptide 21.81 pg/mL (0-100) Other Laboratory Tests 03/29/25 09:31 03/28/25 03:30 Brief Hx & Hospital Course: The patient is a 24-year-old male mentally delayed with past medical history of seizure, upper extremity blood clots currently on Eliquis who presented to [facility] ED for evaluation of altered level of consciousness. As reported by EMS and her mother, the patient was using the bathroom for an extended period of time when mother realized the bidet was running non-stop prompting her to inquire further and finding the patient leaning against the wall with clenched fists and yelling distressed which prompted to call 911. Patient was seen and evaluated in the ED, he underwent a subsequent 12 lead electrocardiogram revealing lateral wall ST-elevation with reciprocal changes to inferior and anteroseptal leads. This ECG was evaluated by Dr. Mazariegos at bedside who activated a Code STEMI. Mother at bedside denies any past medical of congenital heart disease, coronary artery disease, or pericarditis. As reported by mom, patient follows up with GI/neurologist specialists at [facility]. Laboratory data shows WBC 7.4, hemoglobin 12.4, hematocrit 40.4, platelets 180, sodium 146, potassium 4.5, BUN 10, creatinine 0.99, glucose 113, calcium 9.0, total bilirubin 1.9, BNP 21.81, troponin to 200, TSH 2.05, blood pressure 142/85, heart rate 114, temperature 97.7 F, O2 saturation 97% on oxygen. Please see medication orders section in the computer. On my assessment, patient remains altered, no diaphoresis, currently on oxygen, no diaphoresis, no diarrhea, no nausea or vomiting, no fever, no chills. Patient was admitted for further evaluation and medical management. STEMI (ST elevation myocardial infarction) Acute chest pain Altered mental status Generalized weakness Dynamic ECG changes with CAD ruled out. Acute pericarditis ruled out. Rule out structural heart disease. Cerebral palsy with cognitive delay. 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 Seizure activity. 03/28/2025: s/p catheterization. defer to cardiology's note for details. pt is doing well. discussed with nursing. pt seen at bedside. downgrade to Telemetry 03/29/2025: continue with monitor. discharged to home to mother's care. cardio cleared Condition at Discharge: Fair Final Diagnosis/Problems List nstemi Discharge Disposition: Home Discharge Instruct/Medications Diet: Cardiac 2g Na,low cholest Activity: No Restrictions, As Tolerated Scheduled Apixaban Base (Eliquis), 5 MG PO BID Levetiracetam (Keppra Tablet), 500 MG PO BID Scheduled PRN Docusate Sodium (Docusate Sodium), 100 MG PO BIDPRN PRN Discharge Statement: "Patient was advised to return to the ER or call 911 if any headaches, dizziness, shortness of breath, chest pain, abdominal pain, bleeding, fevers, or worsening of medical condition. Patient was counseled about treatment plan, medications, possible side effects, patientverbalized understanding. All questions were answered to the best of my ability. This discharge took greater then 30 minutes in planning, reviewing documentation, counseling the patient, and discussing with other team members." ASSESSMENT ASSESSMENT Assessment nstemi Date of Service: Mar 29, 2025 Billing Provider: PAULA BAUGH DO Common Visit Codes: [id number] DISCH DAY >30min PAULA BAUGH DO Mar 29, 2025 16:54
[2025-03-29] MEDS ORDERED: LISI20TA56 PO (16:57)
[2025-03-29] MEDS ORDERED: ATOR20TA50 PO (16:57)
[2025-03-29] MEDS ORDERED: TPN PER PHARMACY IV NR (22:00)
--- NOTE | 2025-03-29 23:49 | DVHPN2 ---
Progress Note - Dictate Date Seen: Mar 29, 2025 Medical Necessity Reason Pt with a Central, PICC or Fol: No Subjective Patient was seen and evaluated in follow up. Patient downgraded to tele bed. Patient underwent left heart catheter, lower b[place] selective left and right coronary artery angiography. The study has revealed normal coronary arteries. Ejection fraction was reduced and is in the range of 30%. Patient is cardiac stable for discharge. Telemetry reviewed. vital signs Vital Sign Date Time Temp Pulse Resp B/P (MAP) Pulse Ox O2 Delivery O2 Flow Rate FiO2 03/29/25 17:13 98.6 93 21 99 03/29/25 16:30 106/59 (75) 03/29/25 08:05 Room Air* 0 21 Total Intake and Output 03/28/25 03/28/25 03/29/25 15:00 23:00 07:00 Intake Total 400 ml 1157 ml 625 ml Balance 400 ml 1157 ml 625 ml laboratory and microbiology Laboratory Tests 03/29/25 09:31 03/28/25 03:30 Test 03/29/25 09:31 Range/Units Serum Glucose 73 L 74-106 mg/dL Problem List Dynamic ECG changes with CAD ruled out. Acute pericarditis ruled out. Rule out structural heart disease. Cerebral palsy with cognitive delay. 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 Seizure activity. NSTEMI Type II, likely secondary to above. Assessment/Plan Continued all current supportive medical care. The patient presented with dynamic 12-lead electrocardiogram changes mostly to the lateral wall for which he underwent a coronary angiogram without catheter based intervention given normal coronaries. Acute pericarditis have been ruled out as well. Continue home Eliquis therapy which was prescribed as DVT prophylaxis. Additional plan as per the hospital course. Dietary Evaluation Review Recommendations by RD: PPN/TPN Comments: 1) Initiate TPN to meet at least 75% of estimated daily needs 2) If GI is preferred, consider Jevity 1.2 @ 55 mL/hr goal rate as tolerated. EN regimen will provide 1584 kcals, 73g Pro and 1065 mL free H2O per 24 hrs. Goal rate will meet ~96% estimated daily energy needs and exceed estimated daily protein eneds. 3) Advance to regular diet when medically feasible, pending ST approval 4) Follow-up with neurology 5) Continue to monitor I&O, labs, and skin integrity Expected Outcomes/Goals: 1) EN/TPN to meet at least 75% of estimated daily needs 2) labs to improve 3) diet to advance 4) f/u in 2-3 days Plan discussed with: Patient JOHNNY DEL ROSARIO MD Mar 29, 2025 23:49
== END 2025-03-29 18:11 | disposition home health service (06) | DRG 192 ==
LOC: EDBD 16:06 → ER 16:06 → OVERFLOW 18:26 → ICU WEST 19:45 → TELE-EAST 03-29 04:02
PROVIDERS: ADMIT Internal Medicine; ATTEND Internal Medicine
PROC: 4A023N7 Measurement of Cardiac Sampling and Pressure, Left Heart, Percutaneous Approach (ICD-10-PCS; principal; 2025-03-27)
PROC: B211YZZ Fluoroscopy of Multiple Coronary Arteries using Other Contrast (ICD-10-PCS; 2025-03-27)
PROC: B215YZZ Fluoroscopy of Left Heart using Other Contrast (ICD-10-PCS; 2025-03-27)
PROC: B41GYZZ Fluoroscopy of Left Lower Extremity Arteries using Other Contrast (ICD-10-PCS; 2025-03-27)
DX: I11.0 Hypertensive heart disease with heart failure (principal); G93.41 Metabolic encephalopathy; I21.A1 Myocardial infarction type 2; R56.9 Unspecified convulsions; I50.23 Acute on chronic systolic (congestive) heart failure; G80.9 Cerebral palsy, unspecified; Z79.01 Long term (current) use of anticoagulants; Z91.041 Radiographic dye allergy status; Z88.3 Allergy status to other anti-infective agents; Z86.718 Personal history of other venous thrombosis and embolism
CPT/HCPCS: 36415; 71045; 75710; 80053; 80061; 82962; 83036; 83735; 83880; 84100; 84443; 84484; 85025; 85610; 85652; 85730; 86141; 86850; 86900; 86901; 87081; 93005; 93306; 93458; 96374; 96375; 97163; 99152; 99291; G0378; J2250; J3490; Q9967